=== PATIENT | male | born 1985 | race Caucasian/White ===

== ENCOUNTER 2020-11-23 16:22 | Emergency (ER) | payer OTHER ==
[~2020-11-23] VITALS: Ht 180.3 cm; Wt 76.4 kg
[2020-11-23 16:36] VITALS: TEMP 98.3
[2020-11-23 17:57] VITALS: BP 150/87; PULSE 87
== END 2020-11-23 17:57 | disposition home or self-care (01) ==
LOC: COL.ER 16:22
DX: B35.3 Tinea pedis (principal); R23.8 Other skin changes; F17.210 Nicotine dependence, cigarettes, uncomplicated

== ENCOUNTER 2020-11-25 14:04 | Emergency (ER) | payer OTHER ==
[~2020-11-25] VITALS: Ht 180.3 cm; Wt 76.4 kg
--- NOTE | 2020-11-25 16:03 | NUR ---
Ampoule Washing Machine Operator consulted for the patient due to being homeless and having blisters on his feet. Per EMR, the patient's payor source is [employer]. Al[employer] Supervisor contacted [facility] to inquire about availablity. The patient was put on a no return list for now for threatening staff and disruptive behavior. It would be up to the correctional casework specialist if they would accept the patient and it would be no time soon. GIOVANNY met with the patient. The patient states he has live in [place] since August. He has his name on a list for HUD housing. The patient inquired about possibly getting a free wheelchair. He was agreeable for this SW to contact the [facility] to inquire about a wheelchair. GIOVANNY left message for Emily. The patient also inquired about crutches. GIOVANNY contacted [facility] and since the patient has [employer] they cannot bill them. [facility] recommended renting crutches from [facility] for $1 a day. GIVOANNY contacted the [facility] regarding crutches and they informed this SW that the patient would have to pick the crutches in [place]. GIOVANNY informed the patient regarding the above information and he was happy about the rental at [facility] and will likely pursue that option. GIOVANNY provided a taxi voucher for the patient. GIOVANNY presented the [facility] Resource Guide to the patient. The patient states he is familar with the food locations. GIOVANNY discussed the free laundry services available the first Saturday of the month and provided the address. GIOVANNY provided the contact information and address to the HI centers in [place]. GIOVANNY collaborated the above information with the emergency department
[2020-11-25 16:54] VITALS: BP 107/79; PULSE 85; TEMP 98.4
== END 2020-11-25 17:05 | disposition home or self-care (01) ==
LOC: COL.ER 14:04
DX: S90.425A Blister (nonthermal), left lesser toe(s), initial encounter (principal); S90.424A Blister (nonthermal), right lesser toe(s), initial encounter; X58.XXXA Exposure to other specified factors, initial encounter; Y93.01 Activity, walking, marching and hiking